=== PATIENT | male | born 1935 | race Native Hawaiian/Other Pacific Islander ===

== ENCOUNTER 2018-10-12 22:11 | Emergency (ER) | payer OTHER ==
[~2018-10-12] VITALS: Ht 172.7 cm; Wt 89.1 kg
[~2018-10-12 22:11] MED LIST: 904272561 PO; ASCO500T18 PO; CELEBREX100 MG PO; CITALOPRAM20 M1 PO; EMOLOIN22 TOP; EQL ASPIRIN325 MG PO; GABA400C2 PO; JANUVIA100 MG PO; LIPITOR80 MG PO; LISI5TAB10 PO; MULTTAB52 PO; MYRBETRIQ25 MG PO; OXYBUTYNIN10 MG PO; ZINC220C4 PO; [UNRECOGNIZED DRUG - CODE] PO
[2018-10-12 23:20] LABS: POTASSIUM 4.6 mmol/L (3.6-5.2)
[2018-10-12 23:28] LABS: PLATELET COUNT 233 K/uL (142-355)
[2018-10-13 00:09] VITALS: BP 128/77; TEMP 98.2
[2018-10-13] MEDS ORDERED: CORTEF10 MG PO (01:35)
[2018-10-13] MEDS ORDERED: TYLENOL325 MG PO (01:36)
[2018-10-13] MEDS ORDERED: MAGNSUS68 PO (01:36)
[2018-10-13] MEDS ORDERED: BISAC-EVAC10 MG RE (01:37)
[2018-10-13] MEDS ORDERED: FLEET ENEMA RE (01:37)
== END 2018-10-13 00:11 | disposition home or self-care (01) ==
LOC: ED 22:11
PROVIDERS: Internal Medicine
DX: D72.828 Other elevated white blood cell count (principal); G30.8 Other Alzheimer's disease; F02.81 Dementia in other diseases classified elsewhere, unspecified severity, with behavioral disturbance; Z04.6 Encounter for general psychiatric examination, requested by authority
CPT/HCPCS: 36415; 80053; 81000; 85027; 93005; 99285